=== PATIENT | female | born 1950 | race Caucasian/White ===

== ENCOUNTER 2018-06-08 13:08 | Emergency (ER) | payer OTHER ==
[~2018-06-08] VITALS: Ht 170.2 cm; Wt 98.2 kg
[~2018-06-08 13:08] MED LIST: ASPI325T17 PO; NONE PER PT; OXYC5CAP2 PO
[2018-06-08 13:19] VITALS: BP 126/66
--- NOTE | 2018-06-08 14:45 | NUR ---
Patient/Caregiver given discharge instructions and they have confirmed that they understand the instructions. Patient ambulatory with steady gait.
== END 2018-06-08 14:53 | disposition home or self-care (01) ==
LOC: ED 14:45
DX: J06.9 Acute upper respiratory infection, unspecified (principal)
CPT/HCPCS: 71046; 99283

== ENCOUNTER 2019-09-28 13:33 | Emergency (ER) | payer MEDICARE, BC ==
[~2019-09-28] VITALS: Ht 172.7 cm; Wt 97.0 kg
[2019-09-28 14:30] LABS: BASOPHILS # (AUTO) 0.03 x10^3/uL (0-0.1); BASOPHILS % (AUTO) 0 % (0-1); EOSINOPHILS # (AUTO) 0.24 x10^3/uL (0-0.4); EOSINOPHILS % (AUTO) 3 % (1-7); LYMPHOCYTES # (AUTO) 1.98 x10^3/uL (1-3.4); LYMPHOCYTES % (AUTO) 24 % (22-44); MD NO; MEAN CORPUSCULAR HEMOGLOBIN 31.4 pg (27.0-34.8); MEAN CORPUSCULAR HGB CONC 33.2 g/dL (32.4-35.8); MEAN CORPUSCULAR VOLUME 94.7 fL (80-100); MEAN PLATELET VOLUME 7.6 fL (7.4-10.4); MONOCYTES # (AUTO) 0.71 x10^3/uL (0.2-0.8); MONOCYTES % (AUTO) 9 % (2-9); NEUTROPHILS # (AUTO) 5.41 x10^3/uL (1.8-6.8); NEUTROPHILS % (AUTO) 65 % (42-75); PLATELET COUNT 304 x10^3/uL (130-400); RED BLOOD COUNT 4.59 x10^6/uL (3.82-5.3); RED CELL DISTRIBUTION WIDTH 13.8 % (9.6-15.2)
[2019-09-28 14:40] LABS: ALBUMIN 3.9 g/dL (3.4-5.0); ANION GAP 4 mmol/L (5-15); CALCIUM 8.8 mg/dL (8.5-10.1); CHLORIDE 110 mmol/L (98-107); CREATININE 0.61 mg/dL (0.55-1.02)
[2019-09-28] MEDS ORDERED: ALBUTEROL/IPRATROPIUM 2.5MG/0.5MG, 3 ML ONE (16:25)
[2019-09-28] MEDS ORDERED: KETOROLAC 30 MG/1 ML ONE (16:25)
[2019-09-28] MEDS ORDERED: ALBUTEROL/IPRATROPIUM 2.5MG/0.5MG, 3 ML NPPB ONE (16:30)
[2019-09-28] MEDS ORDERED: KETOROLAC 30 MG/1 ML IVPush ONE (16:30)
--- NOTE | 2019-09-28 16:58 | NUR ---
BREAK RN: PATIENT MEDICATED PER EMAR. DISCUSSED WITH DR. ALMARAZ ON ROUTE OF MED. SUNG VERBALIZED OKAY TO GIVE MEDICATION IM, NO PIV PLACED.
--- NOTE | 2019-09-28 17:34 | NUR ---
BREAK RN: PIV PLACED FOR CTA
[2019-09-28 18:12] VITALS: BP 131/75
[2019-09-28] MEDS ORDERED: OMNIPAQUE 350 MG/ML, 100ML BOTTLE ONE (18:21)
== END 2019-09-28 19:29 | disposition home or self-care (01) ==
LOC: ED 15:13
DX: J15.9 Unspecified bacterial pneumonia (principal); J22 Unspecified acute lower respiratory infection; R07.89 Other chest pain; R06.02 Shortness of breath; R94.31 Abnormal electrocardiogram [ECG] [EKG]; M19.90 Unspecified osteoarthritis, unspecified site
CPT/HCPCS: 36415; 71045; 71275; 80048; 82040; 85025; 85379; 93005; 94640; 96374; 99285; J1885; Q9967; 87635